=== PATIENT | female | born 1945 | race Caucasian/White ===

== ENCOUNTER 2019-05-19 16:38 | Outpatient (REF) | payer MEDICARE, BC, SELFPAY ==
[2019-05-19 19:57] LABS: HCT 42.1 % (36.0-46.0); HGB 13.1 g/dL (12.0-15.5); Mean Corp. HGB Concentration 31.1 g/dL (32.0-36.0); Mean Corpuscular Hemoglobin 24.7 pg (27.0-33.0); Mean Corpuscular Volume 79.3 fL (80-95); Mean Platelet Volume 9.8 fL (8.0-11.0); Platelet Count 414 x1000/uL (130-400); RBC 5.31 m/cumm (4.00-5.20); RBC Distribution Width 17.2 % (11.7-14.6); White Blood Cell Count 14.47 k/cumm (4.4-10.8)
[2019-05-19 20:23] LABS: ALT 24 U/L (12-78); AST 15 U/L (15-37); Albumin 3.2 g/dL (3.4-5.0); Alkaline Phosphatase 149 U/L (46-116); Anion Gap 7.7 mmol/L (3-11); BUN 21 mg/dL (7-18); Bilirubin, Total 0.3 mg/dL (0.2-1.0); CO2 30.3 mmol/L (21.0-32.0); CREATININE 1.14 mg/dL (0.55-1.02); Calcium 8.9 mg/dL (8.5-10.1); Chloride 100 mmol/L (98-107); Estimated GFR 46.85 (mL/min/1.73m2); Glucose 166 mg/dL (70-100); Potassium 4.1 mmol/L (3.5-5.1); Sodium 138 mmol/L (136-145); Total Protein 6.9 g/dL (6.4-8.2)
== END 2019-05-19 16:58 ==
LOC: NCHCN 16:38
PROVIDERS: PCP Internal Medicine; Visit Provider Internal Medicine
DX: I10 Essential (primary) hypertension (principal); E11.9 Type 2 diabetes mellitus without complications; F32.9 Major depressive disorder, single episode, unspecified; J32.2 Chronic ethmoidal sinusitis
CPT/HCPCS: 80053; 85027

== ENCOUNTER 2020-09-06 21:30 | Outpatient (REF) | payer MEDICARE, BC, SELFPAY ==
[2020-09-08 21:28] LABS: Patient Race White; SARS-CoV-2 RNA Undetected (Undetected); SARS-CoV-2 Specimen Source Nasal
== END 2020-09-06 21:50 ==
LOC: NCHCN 21:30
PROVIDERS: PCP Internal Medicine; Visit Provider Physician Assistant
DX: R05 Cough (principal)
CPT/HCPCS: U0003

== ENCOUNTER 2021-10-24 15:33 | Outpatient (REF) | payer MEDICARE, BC, SELFPAY ==
[2021-10-24 17:58] LABS: HCT 45.3 % (36.0-46.0); HGB 14.6 g/dL (11.2-15.7); MCH 27.1 pg (27.0-33.0); MCHC 32.2 % (32.0-36.0); MCV 84.2 fL (80-95); MPV 10.5 fL (8.0-11.0); Platelet Count 342 10^3/uL (130-400); RBC 5.38 10^6/uL (3.93-5.22); RDW-SD 45.7 fL; WBC 13.93 10^3/uL (4.4-10.8)
[2021-10-24 18:10] LABS: Anion Gap 8.4 mmol/L (3-11); BUN 28 mg/dL (7-18); CO2 28.6 mmol/L (21.0-32.0); CREATININE 0.9 mg/dL (0.55-1.02); Calcium 9.3 mg/dL (8.5-10.1); Chloride 103 mmol/L (98-107); Glucose 118 mg/dL (74-106); Magnesium 2.1 mg/dL (1.8-2.4); Potassium 4.4 mmol/L (3.5-5.1); Sodium 140 mmol/L (136-145); TSH 3.19 uIU/mL (0.36-3.74)
== END 2021-10-24 15:34 | disposition home or self-care (01) ==
LOC: NCHCN 15:33
PROVIDERS: PCP Internal Medicine; Visit Provider Internal Medicine
DX: I10 Essential (primary) hypertension (principal); E11.9 Type 2 diabetes mellitus without complications; G62.9 Polyneuropathy, unspecified
CPT/HCPCS: 80048; 85027; 83735; 84443

== ENCOUNTER 2022-10-14 15:24 | Outpatient (REF) | payer MEDICARE, SELFPAY ==
[2022-10-14 20:00] LABS: HCT 48.9 % (36.0-46.0); HGB 15.5 g/dL (11.2-15.7); MCH 27.5 pg (27.0-33.0); MCHC 31.7 % (32.0-36.0); MCV 87 fL (80-95); MPV 10.6 fL (8.0-11.0); Platelet Count 336 10^3/uL (130-400); RBC 5.64 10^6/uL (3.93-5.22); RDW 14.2 % (11.7-14.6); RDW-SD 45.4 fL
[2022-10-14 20:23] LABS: ALT 33 U/L (14-59); Anion Gap 7.8 mmol/L (3-11); BUN 24 mg/dL (7-18); CO2 30.2 mmol/L (21.0-32.0); CREATININE 1.1 mg/dL (0.55-1.02); Calcium 9.5 mg/dL (8.5-10.1); Calculated LDL 124 mg/dL (<100); Chloride 101 mmol/L (98-107); Cholesterol 193 mg/dL (<200); Estimated GFR 52.08 (mL/min/1.73m2); Glucose 87 mg/dL (74-106); HDL Cholesterol 44 mg/dL (40-60); Magnesium 2.1 mg/dL (1.8-2.4); Potassium 4.6 mmol/L (3.5-5.1); Sodium 139 mmol/L (136-145); Triglyceride 126 mg/dL (<150)
[2022-10-14 20:45] LABS: Creatine Kinase 51 U/L (26-192)
[2022-10-15 09:34] LABS: Abs Immature Grans 0.03 10^3/uL (0.0-0.06); Absolute Basophil Count 0.08 10^3/uL (0.0-0.2); Absolute Eosinophil Count 0.28 10^3/uL (0.0-0.7); Absolute Lymphocyte Count 4.75 10^3/uL (1.2-3.4); Absolute Monocyte Count 0.91 10^3/uL (0.1-0.8); Absolute Neutrophil Count 7.69 10^3/uL (1.2-6.7); Basophils % 0.6; Immature Grans % 0.2; Lymphocytes % 34.6; Monocytes % 6.6
== END 2022-10-14 15:25 | disposition home or self-care (01) ==
LOC: NCHCN 15:24
PROVIDERS: PCP Internal Medicine; Visit Provider Internal Medicine
DX: I10 Essential (primary) hypertension (principal); E78.2 Mixed hyperlipidemia; I69.354 Hemiplegia and hemiparesis following cerebral infarction affecting left non-dominant side
CPT/HCPCS: 80048; 80061; 82550; 85027; 83735; 84460; 85007